=== PATIENT | male | born 1970 | race Caucasian/White ===

== ENCOUNTER 2017-05-17 09:44 | Day surgery (SDC) | payer OTHER ==
[2017-05-13 08:47] VITALS: BMI 30.5
[~2017-05-17 09:44] MED LIST: LACTATED RINGERS 1,000 ML IV SCH; LIDOCAINE 1% 20 ML VIAL (10MG/ML) FOR IV START INTRADERMA PRN
[2017-05-17 09:57] VITALS: TEMP 97.8
[2017-05-17] MEDS ORDERED: LACTATED RINGERS 1,000 ML IV ONE (09:57)
[2017-05-17] MEDS ORDERED: PROPOFOL 10 MG/ML 20 ML VIAL IV ONE (11:04)
[2017-05-17 11:39] VITALS: RESP 16
--- NOTE | 2017-05-17 11:46 | P.PCN ---
Date of Procedure: 05/17/17 Preoperative Diagnosis: Postoperative Diagnosis: Procedure(s) Performed: Procedure: 1. Esophagogastroduodenoscopy and biopsy. 2. Colonoscopy and biopsy. Preoperative diagnosis: 1. Chronic reflux symptoms requiring constant therapy. 2. Change in bowel habits with onset of diarrhea. Postoperative diagnosis: 1. Sliding hiatal hernia with LA grade B distal esophagitis. 2. Mild antral gastritis. 3. Sigmoid diverticulosis, otherwise, exam of the colon within normal limits. 4. Multiple biopsies obtained from the duodenum, antrum, esophagus, terminal ileum and right colon. Preparation: HalfLytely prep. Sedation: Was provided by anesthesia. Brief clinical history: The patient is a 46-year-old male who is referred for this evaluation for the above reasons. He has chronic reflux and currently has to take medications daily and sometimes twice a day to keep his symptoms under control. No alarm symptoms. He has been having also issues of diarrhea 4-5 days a week. No bleeding or anemia. The patient had both upper endoscopy and colonoscopy in March 2012 and that revealed low-grade distal esophagitis, sliding hiatal hernia, mild gastritis and duodenitis and sigmoid diverticulosis. Procedure: With the patient on his left lateral decubitus position and after informed consent and adequate sedation, I passed the Olympus-GIF 160 video upper endoscope to the cricopharyngeus down the esophagus. GE junction was around 37 cm from the incisors and there was a small sliding hiatal hernia. The distal esophagus showed short linear erosion consistent with LA grade B distal esophagitis. There were no strictures or Blount's esophagus. The endoscope was then advanced to the rest of the stomach which was insufflated with air and inspected in detail including the retroflex view in the cardia. There was some mottling and erythema in the antrum but no ulcers or erosions. Pyloric channel did not show any ulcers. Duodenal bulb showed some erythema, post bulbar area and descending duodenum were within normal limits. Because of his symptoms, I obtained biopsies from the duodenum, antrum and esophagus then the endoscope was withdrawn and I proceeded to do colonoscopy. Perianal area did not show any fissures or fistulas. There were no masses felt on digital rectal examination. The Olympus CFQ 160L video colonoscope was then inserted in the rectum in the usual fashion and advanced to the cecum. I was unable to intubate the ileocecal valve, so after a few attempts, I decided to obtain blind biopsy by passing the biopsy forceps through the ileocecal valve into the terminal ileum. I also obtained biopsies from the right colon. The colon did not show any edema, erythema, friability, ulceration, exudation or spontaneous bleeding. No polyps or tumors were seen. Several diverticular orifices were seen scattered in the sigmoid with no evidence of acute diverticulitis or strictures. I retroflexed the endoscope in the rectum before the endoscope was withdrawn. The patient tolerated the procedure well. Plan: The patient was reassured. Will await pathology results. Further plans can be made based on his course and biopsy results. I would be happy to see in the office if his symptoms persist or change. He will follow up with you as planned. Implants: Indications for Procedure: Operative Findings: Description of Procedure:
[2017-05-17 11:58] VITALS: BP 108/72; PULSE 58
== END 2017-05-17 12:24 | disposition home or self-care (01) ==
LOC: ORWHC2ENDO 09:44
DX: K21.0 Gastro-esophageal reflux disease with esophagitis (principal); K63.5 Polyp of colon; K44.9 Diaphragmatic hernia without obstruction or gangrene; K29.70 Gastritis, unspecified, without bleeding; K57.30 Diverticulosis of large intestine without perforation or abscess without bleeding; Z79.2 Long term (current) use of antibiotics; Z79.899 Other long term (current) drug therapy; Z87.891 Personal history of nicotine dependence
CPT/HCPCS: 88305; 45380; 43239; J2704

== ENCOUNTER → 2018-06-08 | Outpatient (CLI) | payer OTHER ==
--- NOTE | 2018-06-08 15:01 | XR ---
Abdomen HISTORY: Left lower quadrant pain Frontal view of the abdomen on 2 images. No comparisons There calcifications in the pelvis which are felt likely represent phleboliths. Bone mineralization i s maintained. Some mild degenerative disc changes are suspected in the visualized spine, there may be a spinal curvature. Lung bases are clear. There is no evident pneumoperitoneum or bowel obstruction. IMPRESSION: No acute abnormalities evident. Consider CT scan as indicated for better evaluation.
== END | disposition home or self-care (01) ==
LOC: RADXRYALE 11:17
PROVIDERS: ATTEND Family Medicine
DX: R10.814 Left lower quadrant abdominal tenderness (principal)
CPT/HCPCS: 74018

== ENCOUNTER → 2019-04-20 | Outpatient (CLI) | payer OTHER ==
[2019-04-20 11:13] LABS: HCT 44.7 % (39.0-53.0); HGB 15.3 gm/dL (13.0-17.5); MCH 30.7 pg (25.0-35.0); MCHC 34.2 g/dL (31.0-37.0); MCV 89.7 fL (80.0-100.0); Mean Platelet Volume 7.1; Platelet Count 281 k/uL (150-450); RBC 4.98 m/uL (4.30-5.90); RDW 12.7 % (11.5-15.5); WBC 6.9 k/uL (3.8-10.6)
== END | disposition home or self-care (01) ==
LOC: LABPAT 10:45
PROVIDERS: ATTEND Surgery
DX: Z01.812 Encounter for preprocedural laboratory examination (principal)
CPT/HCPCS: 36415; 85027

== ENCOUNTER 2019-04-25 07:17 | Day surgery (SDC) | payer OTHER ==
[2019-04-18 16:15] VITALS: BMI 28.5
[~2019-04-25 07:17] MED LIST changes: +DEXAMETHASONE SOD PHOSPHATE 10 MG/ML 1 ML VIAL IV ONE; +HEPARIN SODIUM,PORCINE 5,000 UNIT/ML 1 ML VIAL SQ ONE; +KETOROLAC 30 MG/ML 1 ML VIAL IVP SCH; -LACTATED RINGERS 1,000 ML IV SCH; +METOCLOPRAMIDE 5 MG/ML 2 ML VIAL IVP PRN; +ONDANSETRON 4 MG/2 ML VIAL IVP PRN; +SCOPOLAMINE 1.5MG/72HR PATCH TRANSDERM ONE; +ceFAZolin IN SWFI 2 GM/20 ML SYRINGE IVP ONE
--- NOTE | 2019-04-25 07:58 | P.GSHP ---
History of Present Illness H&P Date: 04/25/19 Chief Complaint: Left inguinal hernia 48-year-old male complains of pain in the left groin. He also has a bulge there. Previously discomfort was attributed to diverticulitis. This did not respond to antibiotics however. No change in bowel habits. No previous hernias. Past Medical History Past Medical History: GERD/Reflux, Hyperlipidemia Additional Past Medical History / Comment(s): HX DIVERTICULITIS, LEFT INGUINAL HERNIA. History of Any Multi-Drug Resistant Organisms: None Reported Additional Past Surgical History / Comment(s): WISDOM TEETH, VASECTOMY Past Anesthesia/Blood Transfusion Reactions: No Reported Reaction Additional Past Anesthesia/Blood Transfusion Reaction / Comment(s): no hx blood transfusion Past Psychological History: No Psychological Hx Reported Smoking Status: Former smoker Past Alcohol Use History: Heavy Additional Past Alcohol Use History / Comment(s): QUIT SMOKING 1 YEAR AGO (2017) SMOKED SOCIALLY. DRINKS A 12 PACK /WEEK Past Drug Use History: None Reported - Past Family History Mother Family Medical History: Cancer Additional Family Medical History / Comment(s): melanoma Medications and Allergies Home Medications Medication Instructions Recorded Confirmed Type Esomeprazole Magnesium [NexIUM] 40 mg PO DAILY 05/13/17 04/25/19 History Allergies Allergy/AdvReac Type Severity Reaction Status Date / Time No Known Allergies Allergy Verified 04/25/19 07:50 Surgical - Exam Vital Signs Temp Pulse Resp BP Pulse Ox 97.9 F 61 17 117/85 97 04/25/19 07:53 04/25/19 07:53 04/25/19 07:53 04/25/19 07:53 04/25/19 07:53 Physical exam: General: Well-developed, well-nourished HEENT: Normocephalic, sclerae nonicteric Abdomen: Nontender, nondistended, reducible left inguinal hernia, possible small right inguinal hernia Extremities: No edema Neuro: Alert and oriented Assessment and Plan (1) Left inguinal hernia Narrative/Plan: 48-year-old male with reducible left inguinal hernia, possible right inguinal hernia. Surgical options reviewed in the office. We'll proceed today with laparoscopic left possible bilateral da Colin assisted inguinal hernia repair with mesh, possible open. Risks of bleeding, infection, recurrence, bladder and bowel injury, numbness, nerve injury, conversion to an open procedure were discussed with the patient. The patient understands and wishes to proceed. Current Visit: Yes Status: Acute Code(s): K40.90 - UNIL INGUINAL HERNIA, W/O OBST OR GANGR, NOT SPCF RECUR SNOMED Code(s): 920603420
[2019-04-25] MEDS: LACTATED RINGERS 1,000 ML IV SCH (08:04)
[2019-04-25] MEDS ORDERED: fentaNYL (PF) 50 MCG/ML 2 ML AMP IVP ONE (08:23)
[2019-04-25] MEDS ORDERED: MIDAZOLAM (PF) 2 MG/2 ML VIAL IVP ONE ×2 (08:25→08:34)
--- NOTE | 2019-04-25 08:53 | P.ONQ ---
Anesthesiology Proc Note - PNB - Peripheral Nerve Block Performed Left Transversus Abdominis Single Time Out Performed: Yes Procedure Start Time: : Procedure Stop Time: : Indication: Acute Post-Operative Pain, Analgesia, Dx/Pain Location, Requested by physician Sedation Type: Sedate with meaningful contact maintained Preparation: Sterile Prep Position: Supine Catheter: None Needle Types: On-Q Needle Size: 100mm (4") Needle Gauge: 20 Technique: Ultrasound Injectate: 0.5% Ropivacaine (see comment for volume) Blood Aspirated: No Pain Paresthesia on Injection Noted: No Resistance on Injection: Normal Events: Uneventful and Well Tolerated (30ml Total vol.)
[2019-04-25] MEDS ORDERED: GLYCOPYRROLATE 0.2 MG/ML 2 ML VIAL ONE (09:27)
[2019-04-25] MEDS ORDERED: MIDAZOLAM 2 MG/2 ML VIAL ONE (09:27)
[2019-04-25] MEDS ORDERED: fentaNYL (PF) 50 MCG/ML 2 ML AMP ONE (09:27)
[2019-04-25] MEDS ORDERED: ROPIVACAINE 5 MG/ML 30 ML VIAL ONE (09:27)
[2019-04-25] MEDS ORDERED: ROCURONIUM BROMIDE 10 MG/ML 10 ML VIAL IV ONE (09:27)
[2019-04-25] MEDS ORDERED: HYDROmorphone (PF) 1 MG/ML ONE (09:27)
[2019-04-25] MEDS ORDERED: LIDOCAINE 1% INJ 10MG/ML (20 ML MDV) ONE (09:27)
[2019-04-25] MEDS ORDERED: PROPOFOL 10 MG/ML 20 ML VIAL IV ONE (09:27)
[2019-04-25] MEDS ORDERED: NEOSTIGMINE 1 MG/ML 10 ML VIAL ONE (09:27)
[2019-04-25] MEDS ORDERED: BUPIVACAIN-EPI 0.25%-1:200,000 30 ML VIAL SQ ONE ×2 (10:02)
[2019-04-25] MEDS ORDERED: HYDROcodone/APAP 5-325MG 1 EACH TAB PO PRN (11:27)
[2019-04-25] MEDS ORDERED: NALOXONE 0.4 MG/ML 1 ML VIAL IV PRN (11:27)
--- NOTE | 2019-04-25 11:27 | P.OP ---
Date of Procedure: 04/25/19 Procedure(s) Performed: PREOPERATIVE DIAGNOSIS: Left possible bilateral inguinal hernia POSTOPERATIVE DIAGNOSIS: Left inguinal hernia PROCEDURE: Laparoscopic repair left inguinal hernia with the da Colin robot assistance with mesh SURGEON: Kandy EBL: Minimal ANESTHESIA: General COMPLICATIONS: None OPERATIVE PROCEDURE: Patient was placed in the operating table in the supine position. The patient was placed under general anesthesia. The abdomen was prepped and draped in usual sterile fashion. A small curvilinear supraumbilical incision was made. The fascia was retracted anteriorly with Sharmila forceps. The Veress needle was inserted. The saline drop test was normal. Insufflation took place to 15 mmHg. A 5 mm trocar was placed into the peritoneal cavity. This was later switched to a 12 mm trocar. 2 additional 8 mm trochars were placed in the right upper quadrant and left upper quadrant under visualization. The robotic arms were then brought in and docked into place. The fenestrated bipolar was used in the left arm and the laparoscopic [place] was utilized in the right arm. A 30 12 mm scope was used in the up position. The peritoneal cavity was inspected. The patient had a moderate to large indirect left inguinal hernia. Nothing seen on the right-hand side. The peritoneum was incised in a horizontal fashion cephalad to the internal inguinal ring. Following that careful dissection of the preperitoneal space took place. This took place using both electrocautery, sharp dissection but primarily blunt dissection. Visualization of the pubic tubercle and Demarco's ligament took place medially. Full dissection took place laterally as well. The hernia sac was fully dissected. The patient had a large lipoma of the cord that was excised. Once we had adequate space the 15 x 10 progrip mesh was advanced into the preperitoneal space and flattened out appropriately to cover all potential hernia sites. No sutures were used. The peritoneal defect was then closed using a locking 2-0 VLok suture. The excess peritoneum from the sac was incorporated into our closure to help prevent future recurrence. The pneumoperitoneum was then evacuated. The fascia at the 12 mm site was closed using the Moe Manley technique and an 0 Vicryl stitch. The skin of all 3 sites was closed using a 4- 0 Monocryl stitch. Skin glue was then applied. DISPOSITION: Stable to recovery room
[2019-04-25] MEDS: HYDROmorphone 0.5 MG/0.5 ML SYRINGE IVP PRN ×2 (11:39→11:50)
[2019-04-25 11:40] VITALS: TEMP 99
[2019-04-25 12:30] VITALS: RESP 18
[2019-04-25 13:43] VITALS: BP 118/76; PULSE 90
== END 2019-04-25 13:35 | disposition home or self-care (01) ==
LOC: OR 07:17
PROVIDERS: ATTEND Surgery
DX: K40.90 Unilateral inguinal hernia, without obstruction or gangrene, not specified as recurrent (principal); K21.9 Gastro-esophageal reflux disease without esophagitis; E78.5 Hyperlipidemia, unspecified; E66.9 Obesity, unspecified; Z68.29 Body mass index [BMI] 29.0-29.9, adult; D17.6 Benign lipomatous neoplasm of spermatic cord; Z87.891 Personal history of nicotine dependence; Z79.899 Other long term (current) drug therapy; Z80.9 Family history of malignant neoplasm, unspecified
CPT/HCPCS: 49650; S2900; 64486; 88304

== ENCOUNTER → 2019-08-17 | Outpatient (CLI) | payer OTHER ==
--- NOTE | 2019-08-17 08:53 | CT ---
EXAMINATION TYPE: CT sinus wo con DATE OF EXAM: 08/17/2019 COMPARISON: none HISTORY: Headaches, congestion CT DLP: [address] of the paranasal sinuses was performed in the axial and coronal planes. Bone and soft tissue settings are submitted. There is complete opacification right maxillary sinus complete obstruction of the right ostiomeatal u nit and widening noted. There is complete opacification of the right-sided ethmoid air cells in right -sided frontal sinus. Underlying polyposis difficult to exclude. Mucosal thickening of the sphenoid s inus and left maxillary sinus. Left-sided ostiomeatal unit is obstructed as well. Nasal septum is mid line. IMPRESSION: 1. Severe right-sided maxillary, ethmoidal and the right frontal sinusitis with obstruction right ost iomeatal unit. 2. Mild chronic sinusitis of the left maxillary sinus and sphenoid sinus.
== END | disposition home or self-care (01) ==
LOC: RADCTMAIN 08:24
PROVIDERS: ATTEND Family Medicine
DX: J32.4 Chronic pansinusitis (principal); R42 Dizziness and giddiness
CPT/HCPCS: 70486

== ENCOUNTER → 2019-12-24 | Outpatient (CLI) | payer BC ==
--- NOTE | 2019-12-24 20:49 | XR ---
Left foot HISTORY: Trauma and pain 3 views of left foot There is a proximal transverse fracture of the proximal phalanx of the fourth digit left foot without significant displacement. No dislocation. IMPRESSION: Fourth digit fracture.
== END | disposition home or self-care (01) ==
LOC: RADXRYALE 15:05
PROVIDERS: ATTEND Physician Assistant Medical
DX: S92.912A Unspecified fracture of left toe(s), initial encounter for closed fracture (principal)

== ENCOUNTER → 2021-05-08 | Outpatient (CLI) | payer BC ==
--- NOTE | 2021-05-08 10:08 | XR ---
EXAMINATION TYPE: XR shoulder complete LT DATE OF EXAM: 05/08/2021 COMPARISON: NONE HISTORY: Pain TECHNIQUE: Three views are submitted. FINDINGS: The osseous structures are intact. There is no acute fracture or dislocation. The AC joint is maint ained. IMPRESSION: 1. No acute process.
== END | disposition home or self-care (01) ==
LOC: RADXRYALE 09:54
PROVIDERS: ATTEND Family Medicine
DX: M25.512 Pain in left shoulder (principal)

== ENCOUNTER → 2021-05-27 | Outpatient (CLI) | payer BC ==
--- NOTE | 2021-05-28 03:20 | MR ---
EXAMINATION TYPE: MR shoulder LT wo con DATE OF EXAM: 05/27/2021 COMPARISON: None HISTORY: Left shoulder pain, decreased ROM. Multiplanar multiecho imaging of the left shoulder was performed without contrast. The glenoid jose luis appear intact. Subscapularis tendon is intact. Biceps tendon is intact. I see no ev idence of a fracture. There is no evidence of any significant subacromial impingement. The supraspina tus tendon appears intact. There are small areas of increased signal in the tendon without a full-thi ckness tear. Humeral head is intact. IMPRESSION: Minimal signal changes in the supraspinatus tendon consistent with mild tendinitis. No evidence of fu ll-thickness tear. No evidence of any significant subacromial impingement. No fracture.
== END | disposition home or self-care (01) ==
LOC: RADMRIMAIN 17:53
PROVIDERS: ATTEND Physician Assistant
DX: R93.6 Abnormal findings on diagnostic imaging of limbs (principal)

== ENCOUNTER → 2021-07-14 | Outpatient (CLI) | payer BC ==
--- NOTE | 2021-07-15 08:17 | XR ---
EXAMINATION TYPE: XR abdomen 2V DATE OF EXAM: 07/14/2021 COMPARISON: NONE HISTORY: Abdominal pain TECHNIQUE: One view abdominal series FINDINGS: The osseous structures are intact. The bowel gas pattern is nonspecific. Diffuse osteopenia. Calcifi cations in pelvis are nonspecific but likely vascular. Arthropathy of the hips. Degenerative change l ower lumbar spine. IMPRESSION: 1. Nonspecific abdomen.
== END | disposition home or self-care (01) ==
LOC: RADXRYALE 16:21
PROVIDERS: ATTEND Family Medicine
DX: R10.9 Unspecified abdominal pain (principal)
CPT/HCPCS: 74019

== ENCOUNTER → 2022-01-20 | Outpatient (CLI) | payer BC ==
--- NOTE | 2022-01-20 13:00 | ECHOF ---
Referral Reason:I71.4 AAA MEASUREMENTS -------- HEIGHT: 167.6 cm WEIGHT: 88.5 kg BP: RVIDd: 3.8 cm (< 3.3) IVSd: 1.4 cm (0.6 - 1.1) LVIDd: 4.0 cm (3.9 - 5.3) LVPWd: 1.4 cm (0.6 - 1.1) IVSs: 2.1 cm LVIDs: 2.1 cm LVPWs: 1.8 cm LAESV Index (A-L): 33.19 ml/m Ao Diam: 2.8 cm (2.0 - 3.7) AV Cusp: 2.0 cm (1.5 - 2.6) LA Diam: 5.0 cm (2.7 - 3.8) MV EXCURSION: 14.991 mm (> 18.000) MV EF SLOPE: 78 mm/s (70 - 150) EPSS: 0.3 cm MV E Richie: 0.57 m/s MV DecT: 294 ms MV A Richie: 0.69 m/s MV E/A Ratio: 0.83 RAP: 5.00 mmHg RVSP: 22.14 mmHg FINDINGS -------- Sinus rhythm. This was a technically adequate study. The left ventricular size is normal. There is moderate concentric left ventricular hypertrophy. O verall left ventricular systolic function is normal with, an EF between 55 - 60 %. The diastolic fi lling pattern is normal for the age of the patient 7.10. The right ventricle is mild to moderately enlarged. LA is midly dilated 29-33ml/m2. The right atrial size is normal. Interatrial and interventricular septum intact. The aortic valve is trileaflet, and appears structurally normal. No aortic stenosis or regurgitation. The mitral valve is normal. Mild mitral regurgitation is present. The tricuspid valve appears structurally normal. Mild tricuspid regurgitation present. Right vent ricular systolic pressure is normal at < 35 mmHg. The right ventricular systolic pressure, as measu red by Doppler, is 22.14mmHg. There is no pulmonic regurgitation present. The aortic root size is normal. IVC Not well visulized. There is no pericardial effusion. CONCLUSIONS -------- 1. There is moderate concentric left ventricular hypertrophy. 2. Overall left ventricular systolic function is normal with, an EF between 55 - 60 %. 3. The diastolic filling pattern is normal for the age of the patient 7.10 4. The right ventricle is mild to moderately enlarged. 5. LA is midly dilated 29-33ml/m2. 6. The aortic valve is trileaflet, and appears structurally normal. No aortic stenosis or regurgitati on. 7. Mild mitral regurgitation is present. 8. Mild tricuspid regurgitation present. PLANT ELECTRICIAN: Arlyn Lockhart RDCS
== END | disposition home or self-care (01) ==
LOC: RADECHMAIN 10:41
PROVIDERS: ATTEND Family Medicine
DX: I08.1 Rheumatic disorders of both mitral and tricuspid valves (principal)
CPT/HCPCS: 93306

== ENCOUNTER 2022-02-12 06:28 | Day surgery (SDC) | payer BC ==
[2022-02-11 08:26] VITALS: BMI 30.7
[~2022-02-12 06:28] MED LIST changes: -DEXAMETHASONE SOD PHOSPHATE 10 MG/ML 1 ML VIAL IV ONE; -HEPARIN SODIUM,PORCINE 5,000 UNIT/ML 1 ML VIAL SQ ONE; -KETOROLAC 30 MG/ML 1 ML VIAL IVP SCH; +LACTATED RINGERS 1,000 ML IV SCH; -LIDOCAINE 1% 20 ML VIAL (10MG/ML) FOR IV START INTRADERMA PRN; -METOCLOPRAMIDE 5 MG/ML 2 ML VIAL IVP PRN; -ONDANSETRON 4 MG/2 ML VIAL IVP PRN; -SCOPOLAMINE 1.5MG/72HR PATCH TRANSDERM ONE; -ceFAZolin IN SWFI 2 GM/20 ML SYRINGE IVP ONE
[2022-02-12 06:57] VITALS: TEMP 96.8
[2022-02-12] MEDS ORDERED: LIDOCAINE 1% INJ 10MG/ML (20 ML MDV) ONE (07:23)
[2022-02-12] MEDS ORDERED: PROPOFOL 10 MG/ML 20 ML VIAL IV ONE (07:23)
--- NOTE | 2022-02-12 07:43 | P.PCN ---
Date of Procedure: 02/12/22 Procedure(s) Performed: Brief history: Patient is a pleasant 51-year-old white male scheduled for an elective upper endoscopy as well as colonoscopy as a part of evaluation of GERD and recent episode of acute sigmoid diverticulitis for which she was treated with antibiotics 2 weeks ago. Procedure performed: Esophagogastroduodenoscopy with biopsy Colonoscopy Preoperative diagnosis: Long-standing history of GERD Recent episode of acute sigmoid diverticulitis Anesthesia: MAC Procedure: After informed consent was obtained from the patient was brought into the endoscopy unit and IV sedation was administered by anesthesia under continuous monitoring. Initially upper endoscopy was done. The Olympus GF 160 video endoscope was inserted inserted into the mouth and esophagus intubated without any difficulty and was gradually advanced into the stomach and duodenum and carefully examined. The bulb and second part of the duodenum appeared normal. The scope was then withdrawn into the stomach adequately insufflated with air and upon careful examination the antrum and body, cardia and fundus appeared normal. The scope was then withdrawn into the esophagus. All sliding-type well hernia noted. The GE junction was located at 40 cm to the incisors. It appeared regular linear erosions in the distal esophagus consistent with LA grade B reflux esophagitis Rest of the esophagus appeared normal. Patient tolerated the procedure well. At this time the patient continued to remain sedation. Initial digital rectal examination was normal. Olympus CF 160 video colonoscope was then inserted into the rectum and gradually advanced to the cecum without any difficulty. Careful examination was performed as the scope was gradually being withdrawn. The prep was excellent. The cecum, ascending colon, transverse colon, descending colon, sigmoid colon and rectum appeared normal. Scattered sigmoid diverticulosis. Retroflexion was performed in the rectum and no lesions were noted. Patient tolerated the procedure well. Impression: 1. Upper endoscopy revealed linear erosions in the distal esophagus consistent with LA grade B reflux esophagitis, small hiatal hernia and mild antral gastritis 2. Colonoscopy revealed scattered sigmoid diverticulosis but no evidence of colorectal neoplasia Recommendations: Findings of this examination were discussed with the patient as well as his family. He was advised to follow with the biopsy results. Continue Nexium 40 mg daily and follow antireflux measures. He was advised to be on a high-fiber diet and take fiber supplements a regular basis. Recommend to have a repeat screening colonoscopy in 10 years.
[2022-02-12 07:52] VITALS: BP 118/72; PULSE 82; RESP 16
== END 2022-02-12 08:25 | disposition home or self-care (01) ==
LOC: ORWHC2ENDO 06:28
PROVIDERS: ATTEND Internal Medicine Gastroenterology
DX: K29.50 Unspecified chronic gastritis without bleeding (principal); K22.10 Ulcer of esophagus without bleeding; K44.9 Diaphragmatic hernia without obstruction or gangrene; K21.9 Gastro-esophageal reflux disease without esophagitis; K57.30 Diverticulosis of large intestine without perforation or abscess without bleeding; F17.290 Nicotine dependence, other tobacco product, uncomplicated; Z79.899 Other long term (current) drug therapy
CPT/HCPCS: 88305; 45378; 43239; J2001; J2704

== ENCOUNTER → 2022-06-23 | Outpatient (CLI) | payer BC ==
--- NOTE | 2022-06-23 13:51 | XR ---
EXAMINATION TYPE: XR foot complete RT DATE OF EXAM: 06/23/2022 COMPARISON: NONE HISTORY: Pain TECHNIQUE: Three views are submitted. FINDINGS: The osseous structures are intact. There is no acute fracture or dislocation. Hypertrophic arthrop athy first MTP. Tiny calcaneal spur. IMPRESSION: 1. No acute fracture or dislocation. If symptoms persist, follow-up exam in 7 to 10 days could be ob tained.
== END | disposition home or self-care (01) ==
LOC: RADXRYALE 13:24
PROVIDERS: ATTEND Physician Assistant Medical
DX: M79.671 Pain in right foot (principal)

== ENCOUNTER → 2023-11-16 | Outpatient (CLI) | payer BC ==
--- NOTE | 2023-11-21 20:55 | CT ---
EXAMINATION TYPE: CT abdomen pelvis w con DATE OF EXAM: 11/16/2023 COMPARISON: NONE HISTORY: 52-year-old male [id number], R140, K219, R197, abdominal pain TECHNIQUE: Contiguous axial scanning of the abdomen and pelvis following administration of 100 ml Iso domo 300 IV contrast. Delayed images through the kidneys and coronal/sagittal reconstructions perform ed. CT DLP: 1382.6 mGycm Automated exposure control for dose reduction was used. FINDINGS: Heart normal size without pericardial effusion. Lung bases clear without pleural effusion. There is a small hiatal hernia. Liver mildly enlarged at 18.5 cm with diminished attenuation. Portal venous system is patent. No bili luis ductal dilatation. Adrenal glands, kidneys, spleen, and pancreas within normal limits. No dilated small bowel, free fluid, or free air. No mesenteric or retroperitoneal lymphadenopathy. While the appendix is not well seen, no secondary findings of acute appendicitis within the right low er quadrant. Oral contrast progressed to the hepatic flexure of the colon. There is mild overall stool burden. Lef t-sided colonic diverticulosis. No pericolonic inflammatory change. Tiny fatty umbilical hernia. Bladder is urine distended. Prostate gland is borderline enlarged at 4.3 cm. Patulous right inguinal canal. A few tiny pelvic fluid. No abnormal fluid collection in the pelvis or pelvic lymphadenopathy. Bones: Hypertrophic facet arthropathy lower lumbar spine with a lumbarized S1 segment and moderate de generative disc disease above and L5-S1. IMPRESSION: 1. SMALL HIATAL HERNIA. TINY FATTY UMBILICAL HERNIA. 2. MILD HEPATOMEGALY AT 18.5 CM AND MILD TO MODERATE HEPATIC STEATOSIS. 3. LEFT-SIDED COLONIC DIVERTICULOSIS WITHOUT ACUTE DIVERTICULITIS.
== END | disposition home or self-care (01) ==
LOC: RADCTMAIN 10:25
PROVIDERS: ATTEND Family Medicine
DX: K42.9 Umbilical hernia without obstruction or gangrene (principal); R14.0 Abdominal distension (gaseous); K57.30 Diverticulosis of large intestine without perforation or abscess without bleeding; R16.0 Hepatomegaly, not elsewhere classified; K76.0 Fatty (change of) liver, not elsewhere classified; R19.7 Diarrhea, unspecified; K44.9 Diaphragmatic hernia without obstruction or gangrene
CPT/HCPCS: 74177; Q9967

== ENCOUNTER → 2023-12-16 | Outpatient (CLI) | payer BC ==
--- NOTE | 2023-12-16 11:19 | NM ---
Nuclear medicine hepatobiliary scan. HISTORY: Pain. DOSAGE: The patient received 8 0z Ensure plus and 4.7 mCi of Technetium 99m Choletec. FINDINGS: There is normal hepatic extraction. The gallbladder is seen by 90 minutes. There is bilia ry to bowel clearance by 20 minutes. Ejection fraction is 71%. IMPRESSION: 1. Delayed filling of the gallbladder at 90 minutes. Correlate for cholecystitis. A Yellow level critical message alert has been initiated for Robbie Zurita DO via the [employer] Critical Results System on 12/16/2023 11:17 AM. This message alert has been sent to Robbie mccurdy DO via the preferences provided by the clinician for the receipt of Radiology Critical Findings . Message ID [id number].
== END | disposition home or self-care (01) ==
LOC: RADNMMAIN 06:49
PROVIDERS: ATTEND Family Medicine
DX: R10.811 Right upper quadrant abdominal tenderness (principal); R19.7 Diarrhea, unspecified
CPT/HCPCS: 78226; A9537

== ENCOUNTER → 2024-06-25 | Outpatient (CLI) | payer BC ==
--- NOTE | 2024-06-25 14:00 | XR ---
EXAMINATION TYPE: XR cervical spine comp DATE OF EXAM: 06/25/2024 11:41 AM CLINICAL INDICATION:Male, 53 years old with history of [id number],[id number] SKIN PARESTHESIA,CERVICALGIA, PAIN; [facility] COMPARISON: None TECHNIQUE: The cervical spine was imaged in frontal, lateral, odontoid and bilateral oblique. FINDINGS: The osseous structures show normal alignment without evidence of an acute fracture. There are osteoph ytes noted throughout the cervical spine on the anterior and lateral aspects of the vertebral bodies. The intervertebral disk spaces are narrowed at multiple levels. Pedicles are intact. Soft tissues a re within normal limits. The odontoid appears intact. IMPRESSION: 1. No fracture or dislocation. 2. Mild degenerative disc disease changes of the cervical spine.
--- NOTE | 2024-06-25 14:02 | XR ---
EXAMINATION TYPE: XR shoulder complete RT DATE OF EXAM: 06/25/2024 11:41 AM CLINICAL INDICATION:Male, 53 years old with history of R202,[id number] SKIN PARESTHESIA,CERVICALGIA, PAIN; [facility] COMPARISON: 06/25/2024 TECHNIQUE: XR shoulder complete RT; examined in AP, internally rotated and scapular Y projections. FINDINGS: No evidence of acute osseous pathology, joint dislocation, or soft tissue swelling. The remaining po rtions of the visualized chest are unremarkable. Mild degeneration changes of the acromion and dista l clavicle. IMPRESSION: 1. No acute osseous pathology. 2. Mild shoulder osteoarthrosis.
== END | disposition home or self-care (01) ==
LOC: RADXRYALE 11:23
PROVIDERS: ATTEND Family Medicine
DX: M19.011 Primary osteoarthritis, right shoulder (principal); R20.2 Paresthesia of skin; M50.30 Other cervical disc degeneration, unspecified cervical region
CPT/HCPCS: 72050

== ENCOUNTER → 2024-07-18 | Outpatient (CLI) | payer BC ==
--- NOTE | 2024-08-07 11:27 | MR ---
Site ID synapse default Patient Lonnie Delgado L JR ID [id number] 1970 Age/Gender: 53Y, M Order # N/A Procedure MR cervical spine wo con Date 07/18/2024 6:07:57 PM EXAMINATION TYPE: MR cervical spine wo con DATE OF EXAM: 07/21/2024 COMPARISON: Cervical spine radiograph 06/25/2024 HISTORY: Neck pain, right shoulder pain, right hand/fingers numbness TECHNIQUE: Multiplanar, multisequence images of the cervical spine were acquired without contrast. FINDINGS: Alignment: The cervical vertebral bodies have preserved heights. Alignment is within normal limits gi venkat patient positioning. Bones: Bone signal is within normal limits. Cord: The spinal cord is unremarkable with regards to their signal intensity and morphology. Discs: Multilevel disc desiccation is present. C2-C3: No significant disc pathology. The spinal canal is patent. No neural foraminal stenosis. C3-C4: No significant disc pathology. The spinal canal is patent. No neural foraminal stenosis. C4-C5: No significant disc pathology. The spinal canal is patent. No neural foraminal stenosis. C5-C6: Eccentric left subarticular zone disc bulge. Minimal effacement of the anterior thecal sac. M ild left neural foraminal stenosis. The right neural foramen is patent. C6-C7: Broad-based disc bulge with mild effacement of the anterior thecal sac. Additionally there is a small right subarticular zone disc protrusion. Mild left and [id number] right neural foramina l stenosis. C7-T1: No significant disc pathology. The spinal canal is patent. No neural foraminal stenosis. Other: None. IMPRESSION: 1. C6-C7 disc bulge with small right subarticular zone disc protrusion. This results in mild central canal stenosis with mild left and [id number] right neural foraminal stenosis. 2. C5-C6 disc bulge with minimal central canal narrowing. Results in mild left neural foraminal steno sis.
== END | disposition home or self-care (01) ==
LOC: RADMRIMAIN 19:45
PROVIDERS: ATTEND Family Medicine
DX: M25.511 Pain in right shoulder (principal); M50.323 Other cervical disc degeneration at C6-C7 level; R20.2 Paresthesia of skin; M50.223 Other cervical disc displacement at C6-C7 level; M48.02 Spinal stenosis, cervical region
CPT/HCPCS: 72141

== ENCOUNTER → 2024-08-13 | Outpatient (CLI) | payer BC ==
[2024-08-13 08:37] VITALS: BP 126/87; PULSE 85; RESP 16; TEMP 97.8
--- NOTE | 2024-08-13 15:08 | P.PAINPG ---
PQRS Measure Charge Sheet Comment: HISTORY OF PRESENT ILLNESS: A 53 yr old male as a referral from Dr Owusu presents today w severe and chronic neck pain > 3 mo secondary to radiculopathy, spondylosis and facet arthropathy without myelopathy for evaluation. Pt states pain level is provoked at 8 /10 in intensity, constant, localized in the cervical spine, predominantly axial, achy in character w occasional shooting pain towards the mid back and R shoulder. Pain is provoked by sitting upright for periods > 30 min. Pain is alleviated by massage therapy x 6 wks which ended in May 2024, physician guided home stretches daily since May 2024, medications (Tramadol, Ibu), repositioning and rest . Chiropractic treatments x 4 sessions in Feb-Apr 2024 were ineffective and stopped treatment. PMH: OA, GERD, Hyperlipidemia, Hx of Diverticulitis PSH: EGD (2016), L Inguinal Hernia Repair (2018), Vasectomy, [place] Teeth Extraction SH: Former tobacco user, Daily ETOH use, No illicit drug use FH: Mo- Melanoma All: See list Meds: See list REVIEW OF ORGAN SYSTEMS: CONSTITUTIONAL: No fevers or chills. No recent weight loss. NEUROLOGICAL: + numbness and tingling along the distal extremities. No seizure disorders or headaches. MUSCULOSKELETAL: + pain PSYCHIATRIC: Denies current depression or suicidal thoughts. Physical Examinations : Constitutional : Cooperative , not in acute distress . Neurologic : Cranial nerve II to XII intact. No focal neurological deficits. Psychiatric : alert & oriented x 3. Matching mood & appropriate affect. Judgment & insight intact. Musculoskeletal : Cervical Spine Motor strength in the deltoid and biceps: Normal right side. Normal Left side Motor strength biceps and the wrist extensors: Normal right side . Normal left side Motor strength in the triceps muscle: Normal right side. Normal left side Deep tendon reflexes: Normal at the biceps. Normal at Brachioradialis. Normal at triceps Vertebral body tenderness to deep palpation over C6 Welch test positive BL C6-C7 Cervical facet loading test: positive bilaterally Spurling test: positive bilaterally Neck distraction test: positive bilaterally Marilin sign: positive bilaterally Lumbar spine Motor strength lower extremities ,thigh and legs 5/5 Right side , 5/5 Left side Deep tendon reflexes : Normal Knee Jerk. Normal Ankle Jerk Vertebral body tenderness over Welch Test positive Lumbar facet Loading Test: positive Right / positive Left Range of motion of the lumbar spine Flexion 30 degrees, extension 10 degrees Straight Leg Raise test: Left/ Right positive at degrees Ameya test: positive right / positive left. Severe tenderness over the Sacroiliac joint on the Right / Left sides Gaenslen test: positive bilaterally Seated flexion test: positive bilaterally. Sacral spine : Severe tenderness over the Sacroiliac joint: right side / left side Range of motion: Flexion of the lumbar spine <60 degrees Range of motion: Extension of the lumbar spine <20 degrees Gaenslen's Test positive Ameya test: positive right side / left side Thigh Thrust Test Sacral Thrust Test Imaging: MRI non contrast cervical spine from 07/18/24 reviewed Assessment/ Plan : C6-C7 radiculopathy Recommendation of ALYSIA C6-C7 #1 and [place] 7.5/325mg #18 NR Use side effects adverse reactions safe storage discussed. Risks, benefits of procedure discussed and patient verbalized understanding. Admits to anti- coagulant use or medical history of diabetes. Protocol for discontinuation/ continuation of medications malcom procedure discussed. All questions answered. I have spent greater than 30 minutes on patient care today. Dr Canales was available by phone for the evaluation of this patient. The time was used to review the medical records including relevant urine studies and Prescription history (MAPs), review of the available imaging, evaluation and examination of the patient, coordination of care with the medical staff and if applicable referring physicians, as well as creation of the medical record - Pain Location Right Neck Non-Pharmacological Interventions: Inactivity Pharmacological Interventions: PRN Medication PQRS Narrative: Smoking Status Former smoker Home Medications: Ambulatory Orders Esomeprazole Magnesium [NexIUM] 40 mg PO DAILY 05/13/17 HYDROcodone/APAP 7.5-325MG [[place] 7.5-325] 1 tab PO Q4H PRN 3 Days #18 tab 08/13/24 Controlled Substance Measures - Controlled Substance Measures Is patient prescribed a controlled substance at discharge?: Yes When asked, does pt state using other controlled substances?: Yes If prescribed controlled substance>3 days was MAPS reviewed?: Prescribed <3 Days
== END ==
LOC: PNWHC3 08:09
PROVIDERS: ATTEND Specialist
DX: M54.12 Radiculopathy, cervical region
CPT/HCPCS: 99211

== ENCOUNTER 2024-08-26 06:21 | Emergency (ER) | payer BC ==
--- NOTE | 2024-08-26 06:56 | XR ---
Left ankle HISTORY: Pain following fall. COMPARISON: None. TECHNIQUE: 3 views left ankle were obtained. FINDINGS: There is moderate soft tissue swelling both medially and laterally. There is a horizontal or transverse avulsion fracture of the medial malleolus below the level of the tibial plafond. There is an oblique mildly displaced comminuted fracture of the distal fibula above t he level of the tibial plafond. The posterior tibia is intact. There is mild widening of the ankle mo rtise medially. The remaining osseous structures of the foot are intact. IMPRESSION: Bimalleolar fracture with ankle swelling and mild widening of the ankle mortise as described above. [facility], , 08/26/2024 6:54 AM
--- NOTE | 2024-08-26 06:58 | XR ---
Left foot. HISTORY: Pain following fall. COMPARISON: 12/24/2019. TECHNIQUE: 3 views of the left foot were obtained. FINDINGS: There are no fractures of the left foot. There are no intra-articular abnormalities. The soft tissues unremarkable. Again note is made of a bimalleolar fracture of the ankle, see the ankle radiographs of the same date . IMPRESSION: 1. No foot fractures. 2 bimalleolar fracture of the ankle. [facility], , 08/26/2024 6:56 AM
[2024-08-26] MEDS: HYDROmorphone 1 MG/ML 1 ML SYRINGE IM STA (07:33)
--- NOTE | 2024-08-26 07:34 | ED ---
Lower Extremity Injury HPI - General Chief Complaint: Extremity Injury, Lower Stated Complaint: Left Ankle Injury Time Seen by Provider: 08/26/24 07:32 Source: patient, RN notes reviewed Mode of arrival: wheelchair Limitations: no limitations - History of Present Illness Initial Comments: 53-year-old male presented to the ER with a chief complaint of left ankle injury. Patient was in [facility] yesterday morning when he accidentally tripped and fell walking upstairs. States since then he has been experiencing pain to left ankle. Denies any paresthesias. Denies any other injuries from the fall. Patient states he did not want to be seen out of the country and flew back approximately 6 hours home for presented to the ER for evaluation. He also is reporting posterior left knee pain. Denies calf tenderness. Patient denies any history of blood clots, blood thinner use, shortness of breath, chest pain, palpitations or other complaints - Related Data Home Medications Medication Instructions Recorded Confirmed Esomeprazole Magnesium [NexIUM] 40 mg PO DAILY 05/13/17 02/12/22 Previous Rx's Medication Instructions Recorded HYDROcodone/APAP 7.5-325MG [[place] 1 tab PO Q4H PRN 3 Days #18 tab 08/13/24 7.5-325] Apixaban [Eliquis Starter Pack 0 mg PO DIRECTED 30 Days #1 08/26/24 (for VTE)] packet HYDROcodone/APAP 5-325MG [[place] 5] 1 each PO Q6HR PRN #12 tab 08/26/24 Allergies Allergy/AdvReac Type Severity Reaction Status Date / Time No Known Allergies Allergy Verified 02/11/22 08:18 Review of Systems ROS Statement: Those systems with pertinent positive or pertinent negative responses have been documented in the HPI. ROS Other: All systems not noted in ROS Statement are negative. Past Medical History Past Medical History: GERD/Reflux Additional Past Medical History / Comment(s): HX DIVERTICULITIS, HIATAL HERNIA History of Any Multi-Drug Resistant Organisms: None Reported Past Surgical History: Hernia Repair Additional Past Surgical History / Comment(s): WISDOM TEETH, VASECTOMY, COLONOSCOPY/EGD, SINUS SX Past Anesthesia/Blood Transfusion Reactions: No Reported Reaction Additional Past Anesthesia/Blood Transfusion Reaction / Comment(s): no hx blood transfusion Past Psychological History: No Psychological Hx Reported Smoking Status: Former smoker Past Alcohol Use History: Occasional Past Drug Use History: None Reported - Past Family History Mother Family Medical History: Cancer Additional Family Medical History / Comment(s): melanoma General Exam Limitations: no limitations General appearance: alert, in no apparent distress Respiratory exam: Present: normal lung sounds bilaterally. Absent: respiratory distress, wheezes, rales, rhonchi, stridor Cardiovascular Exam: Present: regular rate, normal rhythm, normal heart sounds. Absent: systolic murmur, diastolic murmur, rubs, gallop, clicks Extremities exam: Present: tenderness (Left distal fibula and medial malleolus. There is significant edema with contusion to ankle. 2+ left dorsalis pedis pulse. Sensation intact. Patient freely moving digits.) Neurological exam: Present: alert, oriented X3, CN II-XII intact Psychiatric exam: Present: normal affect, normal mood Skin exam: Present: warm, dry, intact, normal color. Absent: rash Course Vital Signs 08/26/24 08/26/24 06:28 08:58 Temperature 98.2 F 98.1 F Pulse Rate 109 H 85 Respiratory 20 18 Rate Blood Pressure 125/98 131/88 O2 Sat by Pulse 96 100 Oximetry Procedures - Orthopedic Splinting/Casting Injury #1 Side: left Lower Extremity Injury Location: ankle Lower Extremity Immobilizer: posterior splint, stirrup splint Other Orthopedic Equipment: crutches Medical Decision Making - Medical Decision Making Was pt. sent in by a medical professional or institution (, PA, [employer] INTELLIGENCE OFFICER CHIEF, urgent care, hospital, or longterm...) When possible be specific @ -No Did you speak to anyone other than the patient for history (EMS, parent, family, police, friend...)? What history was obtained from this source @ -No Did you review nursing and triage notes (agree or disagree)? Why? @ -I reviewed and agree with nursing and triage notes Were old charts reviewed (outside hosp., previous admission, EMS record, old EKG, old radiological studies, urgent care reports/EKG's, longterm records)? Report findings @ -No old charts were reviewed Differential Diagnosis (chest pain, altered mental status, abdominal pain women, abdominal pain men, vaginal bleeding, weakness, fever, dyspnea, syncope, headache, dizziness, GI bleed, back pain, seizure, CVA, palpatations, mental health, musculoskeletal)? @ -Differential Musculoskeletal: Muscular strain, contusion, ligament sprain, fracture, arthritis, septic arthritis, bursitis, cellulitis, muscle spasm, nerve compression, DVT, arterial occlusion, herpes zoster, electrolyte abnormality, tumor.... This is not meant to be in all inclusive list EKG interpreted by me (3pts min.). @ -None done X-rays interpreted by me (1pt min.). @ -Left ankle x-ray showing a trimalleolar fracture. Left foot x-ray negative. CT interpreted by me (1pt min.). @ -None done U/S interpreted by me (1pt. min.). @ -Ultrasound venous Doppler of left lower extremity showing a superficial venous thrombosis approximately 1.1 cm from popliteal vein. What testing was considered but not performed or refused? (CT, X-rays, U/S, labs )? Why? @ -None What meds were considered but not given or refused? Why? @ -None Did you discuss the management of the patient with other professionals (professionals i.e. , PA, [employer] INTELL[employer] OFFICER CHIEF, lab, RT, psych nurse, social sciences research scientist, portfolio mgr, teacher, money position officer, dependency case manager)? Give summary @ -No Was smoking cessation discussed for >3mins.? @ -No Was critical care preformed (if so, how long)? @ -No Were there social determinants of health that impacted care today? How? (Homelessness, low income, unemployed, alcoholism, drug addiction, transportation, low edu. Level, literacy, decrease access to med. care, intermediate, rehab)? @ -No Was there de-escalation of care discussed even if they declined (Discuss DNR or withdrawal of care, Hospice)? DNR status @ -No What co-morbidities impacted this encounter? (DM, HTN, Smoking, COPD, CAD, Cancer, CVA, ARF, Chemo, Hep., AIDS, mental health diagnosis, sleep apnea, morbid obesity)? @ -None Was patient admitted / discharged? Hospital course, mention meds given and route, prescriptions, significant lab abnormalities, going to OR and other pertinent info. @ -Discharge. 53-year-old male presented to ER with a chief complaint of left ankle injury. History and physical exam completed. Vitals within normal limits. Patient no signs of acute distress and nontoxic-appearing. Left lower extremity neurovascular intact. There is pain to palpation of the popliteal fossa. Significant edema with tenderness to medial malleolus. Bruising around ankle. X-rays obtained concerning of a trimalleolar fracture. Due to concern of DVT due to recent travel and immobility ultrasound of left lower extremity obtained. Ultrasound showing a superficial venous thrombosis approximately 1.1 cm from popliteal vein. Patient received IM Dilaudid for pain control in the ER. Upon reevaluation, patient resting comfortably in exam room in no signs of acute distress. Results discussed with patient, all questions answered. Patient will be started on Eliquis, first 10 mg dose in the ER. I instructed the patient to avoid ibuprofen and NSAIDs as these may also thin blood. Patient placed in a splint, see note above. Crutches given. [place] prescribed for pain control outpatient. Instructed patient to remain nonweightbearing and follow-up with orthopedics, referral given. Strict return parameters discussed. Patient discharged in stable condition with follow-up to orthopedics and PCP. Patient verbally expressed understanding and agreement with care plan. Case discussed with ED attending, Dr. Grace. Undiagnosed new problem with uncertain prognosis? @ -No Drug Therapy requiring intensive monitoring for toxicity (Heparin, Nitro, Insulin, Cardizem)? @ -No Were any procedures done? @ -No Diagnosis/symptom? @ -Trimalleolar fracture/superficial venous thrombosis Acute, or Chronic, or Acute on Chronic? @ -Acute Uncomplicated (without systemic symptoms) or Complicated (systemic symptoms)? @ -Complicated Side effects of treatment? @ -No Exacerbation, Progression, or Severe Exacerbation? @ -No Poses a threat to life or bodily function? How? (Chest pain, [place], [place], pneumonia, PE, COPD, DKA, ARF, appy, cholecystitis, CVA, Diverticulitis, Homicidal, Suicidal, threat to staff... and all critical care pts) @ -Yes, superficial venous thrombosis close to a deep vessel can lead to pulmonary embolism. Pulmonary embolisms can lead to cardiac arrhythmias and/or hypoxia which is left-sided. - Radiology Data Radiology results: report reviewed, image reviewed Disposition Clinical Impression: Trimalleolar fracture, Acute superficial venous thrombosis of left lower extremity Disposition: HOME SELF-CARE Condition: Stable Instructions (If sedation given, give patient instructions): Apixaban (By mouth), Ankle Fracture (ED), Deep Vein Thrombosis (ED) Additional Instructions: Follow-up with orthopedics in the next 1 to 2 days. Remain nonweightbearing. You may take [place] 5 and [id number] Tylenol for pain control. Do not take ibuprofen or NSAIDs. Take Eliquis as prescribed and follow-up with PCP within the next 1-3 days for further evaluation of superficial venous thromboembolism. Have a low threshold of returning to the ER for any new onset chest pain, palpitations, shortness of breath or other concerning symptoms. Prescriptions: Apixaban [Eliquis Starter Pack (for VTE)] 0 mg PO DIRECTED 30 Days #1 packet HYDROcodone/APAP 5-325MG [[place] 5] 1 each PO Q6HR PRN #12 tab PRN Reason: Pain Is patient prescribed a controlled substance at d/c from ED?: Yes When asked, does pt state using other controlled substances?: No If prescribed controlled substance>3 days was MAPS reviewed?: Prescribed <3 Days If opioid is for acute pain is fill amount 7 days or less?: Yes If Rx opioid, was Start Talking consent form obtained?: Yes Referrals: Robbie Zurita DO [Primary Care Provider] - 1-2 days Catrachito Dobbins DO [Doctor of Osteopathic Medicine] - 1-2 days Time of Disposition: 08:37
--- NOTE | 2024-08-26 08:07 | US ---
EXAMINATION TYPE: US venous doppler duplex LE LT DATE OF EXAM: 08/26/2024 7:55 AM COMPARISON: NONE CLINICAL INDICATION: Male, 53 years old with history of fracture flew from [facility] emergency department; Left ankle f racture with recent flight; pt states he felt tightness/pain within the left popliteal fossa while on the plane SIDE PERFORMED: Left TECHNIQUE: The lower extremity deep venous system is examined utilizing real time linear array sonog milla with graded compression, doppler sonography and color-flow sonography. VESSELS IMAGED: Common Femoral Vein Deep Femoral Vein Greater Saphenous Vein * Femoral Vein Popliteal Vein Small Saphenous Vein * Proximal Calf Veins (* superficial vessels) Left Leg: Negative for DVT, however there does appear to be superficial thrombus limited within the left popliteal fossa. The SVT does appear to be within close proximity of the left popliteal vein shown on image 42. IMPRESSION: Grayscale, color doppler, spectral doppler imaging performed of the deep veins of the lo wer extremities. There is normal flow, compressibility, vascular waveforms. There is no evidence of left lower extremity DVT. Possible superficial thrombus or SVT in the left popliteal fossa. Clinical correlation recommended. [facility], Workstation: IVANA 08/26/2024 8:04 AM
[2024-08-26] MEDS ORDERED: APIXABAN 5 MG TAB PO STA (08:31)
[2024-08-26] MEDS: APIXABAN 5 MG TAB PO STA (08:48)
[2024-08-26 08:59] VITALS: BP 131/88; PULSE 85; RESP 18; TEMP 98.1
== END 2024-08-26 08:59 | disposition home or self-care (01) ==
LOC: EC 06:21
CPT/HCPCS: 29515; 96372; 99284

== ENCOUNTER → 2024-12-25 | Outpatient (CLI) | payer BC ==
--- NOTE | 2024-12-25 16:07 | XR ---
EXAMINATION TYPE: XR chest 2V DATE OF EXAM: 12/25/2024 4:03 PM COMPARISON: CTA chest 01/11/2022 TECHNIQUE: XR chest 2V Frontal and lateral views of the chest. CLINICAL INDICATION:Male, 53 years old with history of [id number] COUGH,CHEST PAIN,THOR PA IN; FINDINGS: Lungs/Pleura: There is no evidence of pleural effusion, focal consolidation, or pneumothorax. Pulmonary vascularity: Unremarkable. Heart/mediastinum: Cardiomediastinal silhouette is unremarkable. Musculoskeletal: No acute osseous pathology. IMPRESSION: No acute cardiopulmonary disease/process. [facility], , 12/25/2024 4:05 PM
== END | disposition home or self-care (01) ==
LOC: RADXRYALE 15:54
PROVIDERS: ATTEND Family Medicine
DX: K21.00 Gastro-esophageal reflux disease with esophagitis, without bleeding (principal); R05.1 Acute cough; R07.89 Other chest pain; M54.6 Pain in thoracic spine
CPT/HCPCS: 71046